=== PATIENT | male | born 1955 | race Caucasian/White ===

== ENCOUNTER 2021-12-03 00:40 | Inpatient (IN) ==
[2021-12-03 01:11] LABS: ABS Eosinophils 0.1 10^3/ul (0-0.6); ABS Monocytes 1.4 10^3/ul (0-0.8); ABS Neutrophils 8.9 10^3/ul (1.5-7.7); Eosinophil % 0.6 %; Hematocrit 44 % (42-52); Lymphocyte % 15.8 %; Mean Corpuscular HGB Conc 34 g/dL (31-36); Mean Corpuscular Hemoglobin 28 pg (27-31); Mean Corpuscular Volume 82 fL (80-94); Mean Platelet Volume 6.8 fL (7.4-10.4); Platelet Count 267 10^3/uL (150-450); Red Blood Count 5.36 10^6 /uL (4.18-5.48); Red Cell Distribution Width 13 % (10-15); White Blood Count 12.4 10^3/uL (3.5-10.8)
[2021-12-03 01:19] LABS: INR 1.34 (0.86-1.15)
[2021-12-03 01:29] LABS: ALT 16 U/L (7-52); AST 18 U/L (13-39); Albumin 4.1 g/dL (3.2-5.2); Albumin/Globulin Ratio 1.2 (1-3); Alkaline Phosphatase 95 U/L (35-149); Anion Gap 10 mmol/L (2-11); Blood Urea Nitrogen 15 mg/dL (6-24); CO2 Carbon Dioxide 26 mmol/L (22-32); Calcium 9.3 mg/dL (8.6-10.3); Chloride 98 mmol/L (101-111); Globulin 3.3 g/dL (2-4); Glucose 145 mg/dL (70-100); Potassium 3.7 mmol/L (3.5-5.0); Sodium 134 mmol/L (135-145); Total Protein 7.4 g/dL (6.4-8.9); eGFR CKD-EPI 81.5 (>60)
[2021-12-03 01:45] LABS: Troponin I 0.04 ng/mL (<0.03)
[2021-12-03] MEDS ORDERED: fentaNYL 100 mcg/2 ml 50 MCG/ML VIAL ONE ×2 (01:54→10:51)
[2021-12-03] MEDS: fentaNYL 100 mcg/2 ml 50 MCG/ML VIAL IV SLOW PU ONE ×2 (01:56→02:39)
[2021-12-03] MEDS ORDERED: Iohexol 350 (CONTRAST) 500 ML MDV IV ONE (01:56)
[2021-12-03 02:04] LABS: Venous Bicarbonate HCO3 29.1 mmol/L (24-28)
[2021-12-03 02:28] LABS: Troponin I 0.05 ng/mL (<0.03)
[2021-12-03 02:35] LABS: Calcium 9.6 mg/dL (8.6-10.3); Potassium 3.8 mmol/L (3.5-5.0)
[2021-12-03 02:41] LABS: eGFR CKD-EPI 65.6 (>60)
[2021-12-03] MEDS ORDERED: Heparin DRIP 25,000 UNITS BAG 25,000 UNITS/500 ML BAG IV SCH ×4 (03:15→18:22)
[2021-12-03 03:49] LABS: Hematocrit 45 % (42-52); Hemoglobin 14.8 g/dL (14.0-18.0); Mean Corpuscular HGB Conc 33 g/dL (31-36); Mean Corpuscular Hemoglobin 28 pg (27-31); Mean Corpuscular Volume 84 fL (80-94); Mean Platelet Volume 7.1 fL (7.4-10.4); Platelet Count 288 10^3/uL (150-450); Red Blood Count 5.36 10^6 /uL (4.18-5.48); Red Cell Distribution Width 14 % (10-15); White Blood Count 15.9 10^3/uL (3.5-10.8)
[2021-12-03 03:55] LABS: ABS Lymphocytes 1.5 10^3/ul (1.0-4.8); ABS Monocytes 1.6 10^3/ul (0-0.8); ABS Neutrophils 12.7 10^3/ul (1.5-7.7); Eosinophil % 0.1 %; Lymphocyte % 9.7 %
[2021-12-03] MEDS ORDERED: Heparin 5000 UNITS/ML 1 mL VIAL IV SCH ×3 (04:00→11:00)
[2021-12-03 04:01] LABS: eGFR CKD-EPI 66.3 (>60)
[2021-12-03] MEDS: fentaNYL 100 mcg/2 ml 50 MCG/ML VIAL IV SLOW PU PRN ×2 (04:09→06:06)
[2021-12-03 05:27] LABS: Magnesium 1.7 mg/dL (1.9-2.7); Phosphorus 2.6 mg/dL (2.5-5.0)
[2021-12-03] MEDS ORDERED: Magnesium Sulfate IV 3 GM in NS 0.9% 100 ml BAG 100 ML IVPB ONE (05:35)
[2021-12-03] MEDS ORDERED: Lactated Ringers 1000 ml BAG 1,000 ML IV ONE (05:57)
[2021-12-03] MEDS ORDERED: Magnesium Sulfate 2 GM IV (Premix) IVPB ONE (06:00)
[2021-12-03] MEDS ORDERED: Magnesium Sulfate 1 GM IV 1 GM/100 ML BAG IV ONE (06:00)
[2021-12-03 06:07] LABS: Cholesterol 161 mg/dL; HDL Cholesterol 41.3 mg/dL; LDL Cholesterol 92 mg/dL; Triglycerides 137 mg/dL
[2021-12-03 06:47] LABS: Troponin I 0.37 ng/mL (<0.03)
[2021-12-03] MEDS ORDERED: Lactated Ringers 1000 ml BAG 1,000 ML IV SCH (08:00)
[2021-12-03] MEDS ORDERED: Morphine 2 MG/ML SYRINGE IV ONE (08:41)
[2021-12-03] MEDS ORDERED: oxyCODONE/Acetamin 5/325 mg TAB PO PRN (10:10)
[2021-12-03] MEDS ORDERED: Morphine 2 MG/ML SYRINGE IV PRN (10:10)
[2021-12-03] MEDS ORDERED: Perflutren Lipid Microsphere 3 ML VIAL ONE (10:14)
[2021-12-03] MEDS ORDERED: Midazolam 5 mg/5 ml VIAL 1 mg/ml 5 ml VIAL (5 mg) ONE (10:50)
[2021-12-03] MEDS ORDERED: Heparin 2 UNITS/ML 1000 mls 2,000 ML IV ONE (10:51)
[2021-12-03] MEDS ORDERED: Lidocaine 1% VIAL 10 MG/ML VIAL ONE (10:51)
[2021-12-03] MEDS ORDERED: Iohexol 350 (CONTRAST) 200 ML MDV IV ONE (10:51)
[2021-12-03 11:50] LABS: POC SO2 53 %
[2021-12-03] MEDS ORDERED: Alteplase for catheter directed thrombolysis infusion ICU (0.02 mg/mL) SCH (12:00)
[2021-12-03] MEDS: Alteplase for catheter directed thrombolysis infusion ICU (0.02 mg/mL) SCH (13:00)
[2021-12-03 15:37] LABS: Activated Partial Thrombo Time 36.3 seconds (26.0-38.0); Fibrinogen 424.2 mg/dL (110.8-404.3)
[2021-12-03 15:55] LABS: Troponin I 0.42 ng/mL (<0.03)
[2021-12-03 21:42] LABS: Venous Bicarbonate HCO3 26.9 mmol/L (24-28)
[2021-12-03] MEDS ORDERED: HEPARIN DRIP IV SCH (22:00)
[2021-12-03 22:07] LABS: Troponin I 0.22 ng/mL (<0.03)
[2021-12-04] MEDS: Alteplase for catheter directed thrombolysis infusion ICU (0.02 mg/mL) SCH (00:45)
[2021-12-04] MEDS: fentaNYL 100 mcg/2 ml 50 MCG/ML VIAL IV SLOW PU PRN (04:20)
[2021-12-04 04:33] LABS: Hematocrit 38 % (42-52); Hemoglobin 12.7 g/dL (14.0-18.0); Mean Corpuscular HGB Conc 34 g/dL (31-36); Mean Corpuscular Hemoglobin 28 pg (27-31); Mean Corpuscular Volume 83 fL (80-94); Mean Platelet Volume 6.8 fL (7.4-10.4); Platelet Count 232 10^3/uL (150-450); Red Blood Count 4.54 10^6 /uL (4.18-5.48); Red Cell Distribution Width 13 % (10-15); White Blood Count 12.6 10^3/uL (3.5-10.8)
[2021-12-04 04:42] LABS: ABS Basophils 0.1 10^3/ul (0-0.2); ABS Eosinophils 0.2 10^3/ul (0-0.6); ABS Lymphocytes 2.4 10^3/ul (1.0-4.8); ABS Monocytes 1.6 10^3/ul (0-0.8); ABS Neutrophils 8.4 10^3/ul (1.5-7.7); Eosinophil % 1.6 %; Lymphocyte % 19.1 %; Nucleated Red Blood Cells % 0.1
[2021-12-04 04:49] LABS: Calcium 8.3 mg/dL (8.6-10.3); Phosphorus 2.2 mg/dL (2.5-5.0); Potassium 3.7 mmol/L (3.5-5.0)
[2021-12-04] MEDS ORDERED: Potassium Phosphate IV 15 MMOLE in NS 0.9% 250 ml 250 ML IVPB ONE (07:30)
[2021-12-04] MEDS: Enoxaparin 100 MG/ML SYR SUBCUT SCH (12:03)
[2021-12-05] MEDS: Enoxaparin 100 MG/ML SYR SUBCUT SCH (00:18)
[2021-12-05 04:41] LABS: ABS Eosinophils 0.2 10^3/ul (0-0.6); ABS Lymphocytes 2.2 10^3/ul (1.0-4.8); ABS Neutrophils 6.3 10^3/ul (1.5-7.7); Eosinophil % 2.5 %; Hematocrit 35 % (42-52); Hemoglobin 11.6 g/dL (14.0-18.0); Lymphocyte % 22.2 %; Mean Corpuscular HGB Conc 34 g/dL (31-36); Mean Corpuscular Hemoglobin 28 pg (27-31); Mean Corpuscular Volume 83 fL (80-94); Mean Platelet Volume 7.2 fL (7.4-10.4); Platelet Count 222 10^3/uL (150-450); Red Blood Count 4.14 10^6 /uL (4.18-5.48); Red Cell Distribution Width 13 % (10-15); White Blood Count 9.8 10^3/uL (3.5-10.8)
[2021-12-05 04:58] LABS: Calcium 8.3 mg/dL (8.6-10.3); Magnesium 2.1 mg/dL (1.9-2.7); eGFR CKD-EPI 86.6 (>60)
[2021-12-05 08:57] LABS: Phosphorus 2.4 mg/dL (2.5-5.0)
[2021-12-05] MEDS ORDERED: Potassium Phosphate IV 10 MMOLE in NS 0.9% 250 ml 250 ML IVPB ONE (10:36)
[2021-12-06 06:09] LABS: ABS Basophils 0.1 10^3/ul (0-0.2); ABS Eosinophils 0.3 10^3/ul (0-0.6); ABS Lymphocytes 1.8 10^3/ul (1.0-4.8); ABS Monocytes 0.9 10^3/ul (0-0.8); ABS Neutrophils 4.7 10^3/ul (1.5-7.7); Eosinophil % 3.7 %; Hematocrit 35 % (42-52); Hemoglobin 11.6 g/dL (14.0-18.0); Lymphocyte % 23.6 %; Mean Corpuscular HGB Conc 34 g/dL (31-36); Mean Corpuscular Hemoglobin 28 pg (27-31); Mean Corpuscular Volume 83 fL (80-94); Platelet Count 254 10^3/uL (150-450); Red Blood Count 4.16 10^6 /uL (4.18-5.48); Red Cell Distribution Width 13 % (10-15); White Blood Count 7.8 10^3/uL (3.5-10.8)
[2021-12-06 06:27] LABS: Calcium 8.4 mg/dL (8.6-10.3); Potassium 3.9 mmol/L (3.5-5.0); eGFR CKD-EPI 80.6 (>60)
[2021-12-06 13:49] VITALS: BP 147/69
== END 2021-12-06 13:23 | disposition home or self-care (01) | DRG 175 ==
LOC: ED 00:40 → ICU 17:00 → MEDTELE 12-05 14:45
PROVIDERS: ADMIT Surgery Surgical Critical Care; ATTEND Internal Medicine